=== PATIENT | male | born 1980 | race Caucasian/White ===

== ENCOUNTER 2021-01-17 11:16 | Day surgery (SDC) | payer OTHER ==
[2021-01-12 13:42] VITALS: BMI 27.3
--- NOTE | 2021-01-17 06:57 | P.GSHP ---
History of Present Illness H&P Date: 01/17/21 Chief Complaint: Right renal colic The patient is a 40-year-old white male with a history of kidney stones. He now presents with right renal colic, which began on 12/27/2020. Specifically, he reports right flank pain radiating to the right abdomen, associated with nausea and vomiting. A CT scan performed on 12/27/2020 showed moderate right hydronephrosis due to a 4 mm right proximal ureteral calculus. KUB radiograph revealed the calculus to measure closer to 7 mm, adjacent to the L2-L3 interspace. - Constitutional Constitutional: Denies chills, Denies fever - Gastrointestinal Gastrointestinal: Reports nausea, Reports vomiting - Genitourinary (Female) Genitourinary: Reports flank pain, Reports kidney stones, Denies hematuria Past Medical History Past Medical History: Hyperlipidemia Additional Past Medical History / Comment(s): kidney stones. seasonal allergies History of Any Multi-Drug Resistant Organisms: None Reported Additional Past Surgical History / Comment(s): lithotripsy age 16. wisdom teeth Past Anesthesia/Blood Transfusion Reactions: No Reported Reaction Smoking Status: Never smoker - Past Family History Father Family Medical History: Deep Vein Thrombosis (DVT) Medications and Allergies Home Medications Medication Instructions Recorded Confirmed Type Ascorbic Acid [Vitamin C chew] 500 mg PO DAILY 01/12/21 01/12/21 History HYDROcodone/APAP 5-325MG [[place] 1 tab PO DAILY PRN 01/12/21 01/12/21 History 5-325] Loratadine [Claritin] 10 mg PO DAILY 01/12/21 01/12/21 History Multivitamins, Thera [Multivitamin 1 tab PO DAILY 01/12/21 01/12/21 History (formulary)] Pravastatin Sodium [Pravachol] 20 mg PO DAILY 01/12/21 01/12/21 History Sertraline [Zoloft] 25 mg PO DAILY 01/12/21 01/12/21 History Tamsulosin HCl [Flomax] 0.4 mg PO HS 01/12/21 01/12/21 History Allergies Allergy/AdvReac Type Severity Reaction Status Date / Time No Known Allergies Allergy Verified 01/12/21 13:29 Surgical - Exam - General well developed, well nourished, no distress - Neck no masses, trachea midline - Respiratory normal respiratory effort, clear to auscultation - Cardiovascular Rhythm: regular Abnormal Heart Sounds: no systolic murmur, no diastolic murmur, no rub, no S3 Gallop, no S4 Gallop, no click, no other - Abdomen Abdomen: soft, non tender, no guarding, no rigid, no rebound - Genitourinary normal penis with no external lesions, testicles non-tender - Psychiatric oriented to time, oriented to person, oriented to place, speech is normal, memory intact Results - Imaging CT scan - abdomen: report reviewed, image reviewed Assessment and Plan (1) Calculus of ureter Status: Acute Code(s): N20.1 - CALCULUS OF URETER SNOMED Code(s): 20442004 Plan: I had a lengthy discussion with the patient regarding his right ureteral calculus. Options discussed were observation, ESWL, and ureteroscopy with laser lithotripsy. The pros, cons, and risks of each approach was reviewed in detail. The patient has elected to undergo ESWL, performed by Dr. Hardin. He is aware of potential risks, which include anesthesia, treatment failure, incomplete fragmentation, and [place].
[~2021-01-17 11:16] MED LIST: HYDROmorphone 0.5 MG/0.5 ML SYRINGE IVP PRN; LACTATED RINGERS 1,000 ML IV SCH; MIDAZOLAM 2 MG/2 ML VIAL IV PRN
--- NOTE | 2021-01-17 11:35 | XR ---
EXAMINATION TYPE: XR KUB DATE OF EXAM: 01/17/2021 HISTORY: Pain Comparison: None.Single KUB is submitted for interpretation. Findings: Right renal calculi: None Visualized. Right ureteral calculi: None Visualized. Left renal calculi: None Visualized. Left ureteral calculi: None Visualized. Pelvic calcifications: None Visualized. Bowel gas pattern is unremarkable. No free air. No mass effects. IMPRESSION: 1. No visible renal calculi identified at this time. Left kidney is limited by overlying bowel conten t.
[2021-01-17 12:04] VITALS: TEMP 97.8
[2021-01-17] MEDS ORDERED: fentaNYL (PF) 50 MCG/ML 2 ML AMP ONE (12:09)
[2021-01-17] MEDS ORDERED: PROPOFOL 10 MG/ML 20 ML VIAL IV ONE (12:09)
[2021-01-17] MEDS ORDERED: MIDAZOLAM 2 MG/2 ML VIAL ONE (12:09)
[2021-01-17] MEDS ORDERED: FUROSEMIDE 10 MG/ML 4 ML VIAL ONE (12:27)
--- NOTE | 2021-01-17 12:41 | P.OP ---
Date of Procedure: 01/17/21 Preoperative Diagnosis: right ureteral stone Postoperative Diagnosis: same Procedure(s) Performed: right eswl 1500 at 4 Anesthesia: MAC Surgeon: Roshan Hardin Estimated Blood Loss (ml): 0 Pathology: none sent Condition: stable Disposition: PACU Indications for Procedure: right ureteral stone with pain in the proximal ureter Description of Procedure: The patient was brought to the or. ON the lithotripsy table patient is fluroscoped and the stone is seen in the right proximal ureter.. With the energy level IV,1500 shocks are administered the stone fractures nicely. I then the procedure the stone was not easily seen. The patient's awake and returned recovery in good condition. He'll be discharged home upon recovery and found the office in one week.
[2021-01-17 13:09] VITALS: RESP 16
[2021-01-17 13:19] VITALS: BP 119/80; PULSE 74
== END 2021-01-17 13:53 | disposition home or self-care (01) ==
LOC: ORWHC2ENDO 11:16
PROVIDERS: ATTEND Urology
DX: N20.1 Calculus of ureter (principal); Z82.49 Family history of ischemic heart disease and other diseases of the circulatory system
CPT/HCPCS: 50590; 74018; J2250; J3010; J2704

== ENCOUNTER → 2021-01-24 | Outpatient (CLI) | payer OTHER ==
--- NOTE | 2021-01-24 12:08 | XR ---
EXAMINATION TYPE: XR KUB DATE OF EXAM: 01/24/2021 COMPARISON: 01/17/2021 HISTORY: Ureteral calculus TECHNIQUE: AP abdomen FINDINGS: Normal colonic bowel gas is present. Psoas margins are normal. Organomegaly is not evident. Phleboliths are within the pelvis. Some punctate tiny density areas are within the right paramedian r egion may be related to fecal. IMPRESSION: 1. Large renal or ureteral calculi not identified. 2. Unremarkable abdomen
== END | disposition home or self-care (01) ==
LOC: RADXRMAIN 10:53
PROVIDERS: ATTEND Urology
DX: N20.1 Calculus of ureter (principal)
CPT/HCPCS: 74018

== ENCOUNTER → 2021-03-02 | Outpatient (CLI) | payer OTHER ==
--- NOTE | 2021-03-02 15:01 | US ---
EXAMINATION TYPE: US kidneys/renal and bladder DATE OF EXAM: 03/02/2021 COMPARISON: KUB only CLINICAL HISTORY: N20.1 Calculus of ureter. Pt states h/o right renal lithotripsy EXAM MEASUREMENTS: Right Kidney: 11.9 x 5.3 x 5.7 cm Left Kidney: 12.8 x 5.8 x 5.1 cm Right Kidney: Slightly dilated renal pelvis, possible 3mm calculi Left Kidney: Slightly dilated renal pelvis Bladder: wnl Bilateral Jets seen: No Cortical medullary differentiation is maintained. No nephrolithiasis is seen. No masses are identif ied. The urinary bladder is anechoic. IMPRESSION: Mild hydronephrosis present bilaterally. Right-sided nephrolithiasis may be present
--- NOTE | 2021-03-02 15:12 | XR ---
EXAMINATION TYPE: XR KUB DATE OF EXAM: 03/02/2021 Comparison: 01/24/2021 Clinical History: 40-year-old male N20.1 Calculus of ureter Findings: Pelvic phleboliths. No dilated small bowel. Scattered air within the colon. Right renal shadow largel y obscured by bowel gas. Impression: Pelvic phleboliths. Nonobstructive bowel gas pattern. No significant stool burden.
== END | disposition home or self-care (01) ==
LOC: RADUSWWP 11:08
PROVIDERS: ATTEND Urology
DX: N13.30 Unspecified hydronephrosis (principal)
CPT/HCPCS: 74018; 76770